=== PATIENT | female | born 2000 | race Caucasian/White ===

== ENCOUNTER 2024-12-21 10:10 | Emergency (ER) | payer OTHER ==
[2024-12-21 10:26] VITALS: BP 100/63; PULSE 80; RESP 18; TEMP 98.1; BMI 20.7
[2024-12-21] MEDS ORDERED: ACETAMINOPHEN 500 MG TABLET (FP) ONE (11:22)
[2024-12-21] MEDS ORDERED: ONDANSETRON *ODT* 4 MG TABLET ONE (11:22)
[2024-12-21] MEDS: ACETAMINOPHEN 500 MG TABLET (FP) PO ONE (11:25)
[2024-12-21] MEDS: ONDANSETRON *ODT* 4 MG TABLET SL ONE (11:25)
[2024-12-21 11:42] LABS: MCHC 31.7 g/dl (32.2-35.5); MEAN CELL VOLUME 87.9 fl (79.4-94.8); MEAN PLT VOLUME 10.3 fl (9.4-12.3); RDW 18.3 % (12.1-16.5)
[2024-12-21 11:47] LABS: HCG,QUALITATIVE URINE Negative
[2024-12-21 11:52] LABS: URINE APPEARANCE CLOUDY; URINE BILIRUBIN NEGATIVE (NEGATIVE); URINE COLOR ORANGE; URINE GLUCOSE (UA) NEGATIVE (NEGATIVE); URINE KETONE NEGATIVE (NEGATIVE)
[2024-12-21 11:53] LABS: URINE LEUK ESTERASE 1+ (NEGATIVE); URINE NITRITE NEGATIVE (NEGATIVE); URINE PROTEIN 1+ (NEGATIVE); URINE UROBILINOGEN 0.2 mg/dL (0.2-1.0)
[2024-12-21 11:58] LABS: GLUCOSE,RANDOM 88.0 mg/dL (74-106)
[2024-12-21 11:59] LABS: TOT PROT 7.5 g/dl (6.4-8.2)
[2024-12-21 12:00] LABS: CO2 22.0 mmol/L (21-32)
[2024-12-21 12:01] LABS: ALK PHOS 128.0 U/L (40-150)
[2024-12-21 12:04] LABS: CREATININE 0.46 mg/dL (0.55-1.3); SGOT/AST 32.0 U/L (5-34); SGPT/ALT 42.0 U/L (0-55)
[2024-12-21 12:31] LABS: HCV DIAGNOSTIC IN-HOUSE W/RFLX NON-REACTIVE (NONREACTIVE); HIV INTERPRETATION NEGATIVE (NEGATIVE)
== END 2024-12-21 13:57 | disposition home or self-care (01) ==
LOC: JER 10:10
DX: N30.01 Acute cystitis with hematuria (principal); R11.2 Nausea with vomiting, unspecified
CPT/HCPCS: 36415; 80053; 81003; 84703; 85025; 86803; 87086; 87389; 99283-25; Q0162